=== PATIENT | female | born 2000 | race Caucasian/White ===

== ENCOUNTER 2021-08-10 19:21 | Emergency (ER) | payer SELFPAY ==
[2021-08-10] MEDS ORDERED: Meclizine 25 MG Tab PO ONE (20:53)
[2021-08-10] MEDS ORDERED: guaiFENesin 600 MG Tab.ER PO ONE (20:54)
[2021-08-10] MEDS ORDERED: Pseudoephedrine 30 MG Tab PO ONE (20:54)
--- NOTE | 2021-08-10 21:01 | EDM.PDOC ---
ED HPI GENERAL MEDICAL PROBLEM - General Chief Complaint: ENT Problem Stated Complaint: POSSIBLE EAR INFECTION Time Seen by Provider: 08/10/21 20:25 - History of Present Illness INITIAL COMMENTS - FREE TEXT/NARRATIVE: HISTORY AND PHYSICAL: History of present illness: This is a 21-year-old female who reports that she had a diagnosis of coronavirus approximately 1 month ago and since her diagnosis she has had pressure in her ea rs that has been fluctuating from her left to her right ear for the last several weeks as well as vertigo, and pain. Patient reports currently symptoms are in her left ear. Patient reports that recently she pulled out a large wax ball out of her left ear and she showed me videos of it. Patient denies any recent fevers, shakes, chills, nausea, vomiting, diarrhea, dysuria, frequency, urgency. Patient reports that her mother was also diagnosed with coronavirus and had similar symptoms in her ears. Patient does complain of some sinus drainage and congestion as well. Review of systems: As per history of present illness and below otherwise all systems reviewed and negative. Past medical history: As per history of present illness and as reviewed below otherwise noncontributory. Surgical history: As per history of present illness and as reviewed below otherwise noncontributory. Social history: No reported history of drug abuse. Family history: As per history of present illness and as reviewed below otherwise noncontributory. Physical exam: This patient was seen and evaluated during the 2019 SARS-CoV-2 novel coronavirus pandemic period. Community viral transmission is ongoing at time of this encounter and the emergency department is operating under pandemic response procedures. Constitutional: Patient is oriented to person, place, and time. Appears well- developed and well-nourished. No distress. HEENT: Moist mucous membranes Head: Normocephalic and atraumatic Eyes: Right eye exhibits no discharge. Left eye exhibits no discharge. No scleral icterus Neck: Normal range of motion. No tracheal deviation present. Cardiovascular: Normal rate and regular rhythm. Pulmonary: Effort normal, no respiratory distress. Abdominal: No distention Musculoskeletal: Normal range of motion Neurologic: Alert and oriented to person, place and time. Skin: [place], warm and dry. Psychiatric: Normal mood and affect. Behavior is normal. Judgment and thought content normal. Nursing note and vital signs have been reviewed Patient is ER physical exam significant for normal oropharynx. Patient has no auricular lymphadenopathy. Patient's tympanic membranes bilaterally are pearly doran with normal ear canals. There is no discharge or drainage. There is no fluid behind tympanic membranes. Diagnostics: [] Therapeutics: [] Assessment and plan: 21-year-old female who presents ER today secondary to a sinus drainage but more predominantly pain to her ears ever since her Covid diagnosis as well as vertigo. Patient reports that she uses ear candles that help her symptoms slightly but after the effects of the ear candles were off she reports severe vertigo and discomfort in her ears. Patient's exam here is unremarkable. Patient will get started on guaifenesin, Sudafed, and meclizine to see if it might help her symptoms. I have discussed with the patient that this may be related to long-term effects of coronavirus infection and that she might need to follow-up with her primary care doctor for further evaluation and appropriate referrals. Reassessment at the time of disposition demonstrates that the patient is in no acute distress. The patient has remained stable throughout the entire ED visit and is without objective evidence for acute process requiring urgent intervention or hospitalization. The patient is stable for discharge, counseling is provided as documented above, discussed symptomatic treatment and specific conditions for return. I have spoken with the patient/caregiver and discussed todays findings, in addition to providing specific details for the plan of care. Questions are answered and there is agreement with the plan. Definitive disposition and diagnosis as appropriate pending reevaluation and review of above. Bilateral Ear Pain Score (Numeric/FACES): 5 - Related Data Allergies Allergy/AdvReac Type Severity Reaction Status Date / Time No Known Allergies Allergy Verified 08/10/21 20:28 Home Meds: Home Meds Meclizine [Antivert] 25 mg PO Q6H PRN #20 tab 08/10/21 [Rx] Pseudoephedrine [Sudogest] 30 mg PO BID PRN #20 tablet 08/10/21 [Rx] guaiFENesin [Mucinex] 600 mg PO Q12HR PRN #20 tab.er.12h 08/10/21 [Rx] Past Medical History - Past Health History Medical/Surgical History: Denies Medical/Surgical History Psychiatric History: Reports: ADHD Social & Family History - Recreational Drug Use Recreational Drug Use: No ED ROS GENERAL - Review of Systems Review Of Systems: See Below ED EXAM, GENERAL - Physical Exam Exam: See Below Course - Vital Signs Last Recorded V/S: Last Vital Signs Temp 98.9 F 08/10/21 20:28 Pulse 79 08/10/21 20:28 Resp 17 08/10/21 20:28 BP 129/81 08/10/21 20:28 Pulse Ox 99 08/10/21 20:28 - Orders/Labs/Meds Orders: Active Orders 24 hr Category Date Time Status Pseudoephedrine [Sudogest] Med 08/10/21 20:54 Once 30 mg PO ONETIME ONE guaiFENesin [Mucinex] Med 08/10/21 20:54 Once 600 mg PO ONETIME ONE Medication Orders Pseudoephedrine HCl (Pseudoephedrine 30 Mg Tab) 30 mg PO ONETIME ONE Stop: 08/10/21 20:55 Meds: Medications Generic Name Dose Route Start Last Admin Trade Name Freq PRN Reason Stop Dose Admin Pseudoephedrine HCl 30 mg 08/10/21 20:54 Pseudoephedrine 30 Mg Tab PO 08/10/21 20:55 ONETIME ONE Discontinued Medications Generic Name Dose Route Start Last Admin Trade Name Freq PRN Reason Stop Dose Admin Meclizine HCl 25 mg 08/10/21 20:53 Meclizine 25 Mg Tab PO 08/10/21 20:54 ONETIME ONE Departure - Departure Time of Disposition: 20:57 Disposition: Home, Self-Care 01 Condition: Good Clinical Impression: Vertigo, Persistent neurologic symptoms after severe acute respiratory syndrome coronavirus 2 (SARS-CoV-2) infection - Discharge Information Instructions: Vertigo, [id number] Additional Instructions: You were seen and evaluated in ER today secondary to signs symptoms will be related to long-term effects of coronavirus. Your symptoms today are related to issues with your inner ear canal as well as vertigo. You will get started on guaifenesin as well as Sudafed and meclizine to help with your symptoms. The guaifenesin and the Sudafed should be [id number] however you will be given a prescription for meclizine to take to see if that might help. If your symptoms persist you should follow-up with your primary care doctor for appropriate referrals. The following information is given to patients seen in the emergency department who are being discharged to home. This information is to outline your options for follow-up care. We provide all patients seen in our emergency department with a follow-up referral. The need for follow-up, as well as the timing and circumstances, are variable depending upon the specifics of your emergency department visit. If you don't have a primary care physician on staff, we will provide you with a referral. We always advise you to contact your personal physician following an e mergency department visit to inform them of the circumstance of the visit and for follow-up with them and/or the need for any referrals to a consulting specialist. The emergency department will also refer you to a specialist when appropriate. This referral assures that you have the opportunity for follow-up care with a specialist. All of these measure are taken in an effort to provide you with op timal care, which includes your follow-up. Under all circumstances we always encourage you to contact your private physician who remains a resource for coordinating your care. When calling for follow-up care, please make the office aware that this follow-up is from your recent emergency room visit. If for any reason you are refused follow-up, please contact the [facility] Emergency Department at and asked to speak to the emergency department charge nurse. [facility] [address] [place] [address] [address] Sepsis Event Note (ED) - Focused Exam Vital Signs: Vital Signs Temp Pulse Resp BP Pulse Ox 08/10/21 20:28 98.9 F 79 17 129/81 99 - My Orders Last 24 Hours: My Active Orders 08/10/21 20:54 Pseudoephedrine [Sudogest] 30 mg PO ONETIME ONE guaiFENesin [Mucinex] 600 mg PO ONETIME ONE - Assessment/Plan Last 24 Hours: My Active Orders 08/10/21 20:54 Pseudoephedrine [Sudogest] 30 mg PO ONETIME ONE guaiFENesin [Mucinex] 600 mg PO ONETIME ONE
== END 2021-08-10 21:34 | disposition home or self-care (01) ==
LOC: MW.ED 19:21
DX: F48.8 Other specified nonpsychotic mental disorders (principal); U07.1 COVID-19; R42 Dizziness and giddiness
CPT/HCPCS: 99283; A9270

== ENCOUNTER 2021-08-27 13:52 | Emergency (ER) | payer SELFPAY ==
[2021-08-27 17:08] LABS: BLOOD UREA NITROGEN,BUN 9 mg/dL (7.0-18.0); CARBON DIOXIDE,CO2 25.5 mmol/L (21.0-32.0); CHLORIDE,CL 103 mmol/L (98-107); GLUCOSE RANDOM 97 mg/dL (74-106); LIPASE 75 U/L (73-393); POTASSIUM,K 3.9 mmol/L (3.5-5.1); SODIUM,NA 138 mmol/L (136-145)
== END 2021-08-27 17:49 | disposition home or self-care (01) ==
LOC: MW.ED 13:52
DX: R07.9 Chest pain, unspecified (principal); R42 Dizziness and giddiness
CPT/HCPCS: 36415; 71045; 71045-26; 80053; 83690; 84484; 85025; 85379; 85610; 93005; 99285-25

== ENCOUNTER 2022-07-21 13:10 | Emergency (ER) | payer SELFPAY ==
[2022-07-21] MEDS ORDERED: Ondansetron 4 MG/2 ML SDV IVPUSH ONE (14:28)
[2022-07-21] MEDS ORDERED: Ketorolac 30 MG/ML SDV IVPUSH ONE (14:28)
[2022-07-21] MEDS ORDERED: Sodium Chloride 0.9% 1,000 ML IV ONE (14:28)
[2022-07-21 15:22] LABS: CARBON DIOXIDE,CO2 24.3 mmol/L (21.0-32.0); POTASSIUM,K 3.7 mmol/L (3.5-5.1)
[2022-07-21 15:40] LABS: CORONAVIRUS COVID-19 NAA NEGATIVE (NEGATIVE); INFLUENZA A NAA NEGATIVE (NEGATIVE); INFLUENZA B NAA NEGATIVE (NEGATIVE); RESPIRATORY SYNCYTIAL VIR NAA NEGATIVE (NEGATIVE)
[2022-07-21] MEDS ORDERED: Acetaminophen/Codeine 120-12 MG/5 ML Soln 5 ML UD Cup PO ONE (15:47)
== END 2022-07-21 16:48 | disposition home or self-care (01) ==
LOC: MW.ED 13:10
DX: B34.9 Viral infection, unspecified (principal); Z20.822 Contact with and (suspected) exposure to COVID-19
CPT/HCPCS: 0241U; 36415; 71045; 80053; 85025; 96361; 96374; 96375; 99283; J1885; J2405; J7030

== ENCOUNTER 2022-07-22 18:37 | Emergency (ER) | payer SELFPAY ==
[2022-07-22] MEDS ORDERED: Doxycycline 100 MG Cap PO STA (21:56)
[2022-07-22] MEDS ORDERED: Ketorolac 30 MG/ML SDV IM ONE (21:56)
[2022-07-22] MEDS ORDERED: Ketorolac 30 MG/ML SDV ONE (22:17)
== END 2022-07-22 23:30 | disposition home or self-care (01) ==
LOC: MW.ED 18:37
DX: L03.116 Cellulitis of left lower limb (principal)
CPT/HCPCS: 73630; 96372; 99283; A9270; J1885

== ENCOUNTER 2022-08-30 18:00 | Emergency (ER) | payer SELFPAY ==
[2022-08-30 19:11] LABS: CARBON DIOXIDE,CO2 25.5 mmol/L (21.0-32.0); POTASSIUM,K 3.7 mmol/L (3.5-5.1)
== END 2022-08-30 20:17 | disposition home or self-care (01) ==
LOC: MW.ED 18:00
DX: R07.89 Other chest pain (principal); M79.89 Other specified soft tissue disorders; F17.290 Nicotine dependence, other tobacco product, uncomplicated
CPT/HCPCS: 36415; 71045; 71045-26; 80053; 81001; 83735; 84443; 84484; 85025; 93005; 93971-26-LT; 93971-LT; 99285

== ENCOUNTER 2023-07-28 12:51 | Emergency (ER) | payer SELFPAY ==
[2023-07-28] MEDS ORDERED: Ketorolac 30 MG/ML SDV IM ONE (13:51)
[2023-07-28] MEDS ORDERED: Dexamethasone 10 MG/ML SDV IM STA (13:51)
[2023-07-28 14:32] LABS: CORONAVIRUS COVID-19 NAA NEGATIVE (NEGATIVE); INFLUENZA A NAA NEGATIVE (NEGATIVE); INFLUENZA B NAA NEGATIVE (NEGATIVE)
[2023-07-28] MEDS ORDERED: Lidocaine 2% Viscous Solution 15 ML UD PO ONE (14:46)
== END 2023-07-28 14:59 | disposition home or self-care (01) ==
LOC: MW.ED 12:51
DX: J02.9 Acute pharyngitis, unspecified (principal); Z20.822 Contact with and (suspected) exposure to COVID-19; F17.210 Nicotine dependence, cigarettes, uncomplicated
CPT/HCPCS: 0240U; 87651; 96372; 99283; A9270; J1100; J1885

== ENCOUNTER 2023-09-15 17:04 | Emergency (ER) | payer SELFPAY | END 2023-09-15 19:25 | disposition left against medical advice (07) | LOC: MW.ED 17:04 | DX: Z53.21 Procedure and treatment not carried out due to patient leaving prior to being seen by health care provider (principal) ==

== ENCOUNTER 2023-09-25 14:48 | Emergency (ER) | payer SELFPAY ==
[2023-09-25 15:24] LABS: BILIRUBIN,URINE NEGATIVE (NEGATIVE); COLOR,URINE YELLOW; GLUCOSE,URINE NEGATIVE (NEGATIVE); KETONES,URINE NEGATIVE (NEGATIVE); LEUKOCYTE ESTERASE,URINE MODERATE (NEGATIVE); NITRITE,URINE NEGATIVE (NEGATIVE); OCCULT BLOOD,URINE LARGE (NEGATIVE); PROTEIN,URINE 100 mg/dL (NEGATIVE); UROBILINOGEN,URINE 0.2 EU/dL (<2.0)
[2023-09-25 15:35] LABS: APPEARANCE,URINE CLOUDY
[2023-09-25 15:37] LABS: RBC,URINE 50-75 (0-2/HPF)
[2023-09-25 15:38] LABS: BACTERIA,URINE FEW (NEGATIVE); EPITHELIAL CELLS,URINE RARE (NONE-FEW); WBC,URINE 30-40 (0-5/HPF)
== END 2023-09-25 17:03 | disposition home or self-care (01) ==
LOC: MW.ED 14:48
DX: N30.01 Acute cystitis with hematuria (principal); F17.210 Nicotine dependence, cigarettes, uncomplicated; Z79.899 Other long term (current) drug therapy
CPT/HCPCS: 81001; 81025; 87086; 99283